=== PATIENT | female | born 1930 | race African-American/Black ===

== ENCOUNTER 2018-07-17 07:00 | Inpatient (IN) | payer MEDICARE, MEDICAID ==
[~2018-07-17] VITALS: Ht 170.2 cm; Wt 54.4 kg
[2018-07-17] MEDS ORDERED: ATEN-42 PO (08:16)
[2018-07-17] MEDS ORDERED: LEVO75TA7 PO (08:16)
[2018-07-17] MEDS ORDERED: DONE10TA43 PO (08:16)
[2018-07-17] MEDS ORDERED: LACTATED RINGERS 1,000 ML IV SCH (08:30)
[2018-07-17] MEDS ORDERED: FENTANYL CITRATE/PF 50MCG/ML 2ML VIAL ONE (09:58)
[2018-07-17] MEDS ORDERED: MIDAZOLAM HCL 2 MG/2 ML VIAL ONE (09:59)
[2018-07-17] MEDS ORDERED: PROPOFOL 200MG/20ML VIAL IV ONE (09:59)
[2018-07-17] MEDS ORDERED: ROCURONIUM BROMIDE 10MG/ML VIAL 5ML IV ONE (09:59)
[2018-07-17] MEDS ORDERED: EPHEDRINE SULFATE 50MG/ML VIAL ONE ×3 (10:04→11:40)
[2018-07-17] MEDS ORDERED: SODIUM CHLORIDE 0.9% 10ML VIAL ONE ×3 (10:04→11:38)
[2018-07-17] MEDS ORDERED: CEFAZOLIN SODIUM 1000MG/VIAL ONE (10:34)
[2018-07-17] MEDS ORDERED: GLYCOPYRROLATE 0.2 MG/ML 2ML VIAL ONE (10:35)
[2018-07-17] MEDS ORDERED: ATROPINE SULFATE 1MG/10ML SYR ONE (10:45)
[2018-07-17] MEDS ORDERED: METOCLOPRAMIDE HCL 10MG/2ML VIAL ONE (11:56)
[2018-07-17] MEDS ORDERED: ONDANSETRON HCL 4MG/2ML INJ ONE (11:56)
[2018-07-17 12:41] LABS: BASOPHILS % 0.7 % (0.0-2.0); EOSINOPHILS % 1.3 % (0.0-5.0); HEMATOCRIT. 22.1 % (36.0-48.0); HEMOGLOBIN. 7.4 g/dL (12.0-16.0); LYMPHOCYTES % 16.2 % (20.0-50.0); MEAN CORPUSCULAR HEMOGLOBIN 31.1 pg (28.0-32.0); MEAN CORPUSCULAR VOLUME 92.4 fL (81.0-99.0); MEAN PLATELET VOLUME 7.8 fl (7.4-10.4); NEUTROPHILS % 71.8 % (40.0-76.0); PLATELET 238 x1000/uL (130-400); RED BLOOD CELL COUNT 2.39 mill/uL (4.2-5.4); RED CELL DISTRIBUTION WIDTH 13.8 % (11.6-14.6)
[2018-07-17] MEDS ORDERED: HYDROMORPHONE HCL/PF 2MG/ML CPJ IV PRN (13:00)
[2018-07-17] MEDS ORDERED: MAGNESIUM HYDROXIDE 400MG/5ML 30ML UDC PO PRN (13:00)
[2018-07-17] MEDS ORDERED: LORAZEPAM 1MG TABLET PO PRN (13:00)
[2018-07-17] MEDS ORDERED: ACETAMINOPHEN 500MG TABLET PO PRN (13:15)
[2018-07-17] MEDS ORDERED: CEFAZOLIN SODIUM 1000MG/VIAL IV SCH (14:00)
[2018-07-17 16:00] VITALS: BP 105/42
[2018-07-17] MEDS ORDERED: CEFAZOLIN 1000MG PREMIX 50 ML IV SCH (16:00)
[2018-07-17 17:07] VITALS: BP 121/51
[2018-07-17] MEDS: FERROUS SULFATE 325MG TABLET PO SCH (18:12)
[2018-07-17] MEDS: DOCUSATE SODIUM 100MG CAPSULE PO SCH (18:12)
[2018-07-17 20:00] VITALS: BP 96/50
[2018-07-17 20:00] LABS: HEMATOCRIT 24.3 % (36.0-48.0); HEMOGLOBIN 8.2 g/dL (12.0-16.0)
[2018-07-18] VITALS (8 sets, daily range): BP systolic 85–104; BP diastolic 31–42
[2018-07-18 07:21] LABS: BASOPHILS % 0.4 % (0.0-2.0); EOSINOPHILS % 1.5 % (0.0-5.0); HEMATOCRIT. 21.8 % (36.0-48.0); HEMOGLOBIN. 7.1 g/dL (12.0-16.0); LYMPHOCYTES % 11.3 % (20.0-50.0); MEAN CORPUSCULAR HEMOGLOBIN 30.3 pg (28.0-32.0); MEAN CORPUSCULAR VOLUME 92.6 fL (81.0-99.0); MEAN PLATELET VOLUME 7.4 fl (7.4-10.4); MONOCYTES % 9.7 % (2.0-8.0); NEUTROPHILS % 77.1 % (40.0-76.0); PLATELET 255 x1000/uL (130-400); RED BLOOD CELL COUNT 2.35 mill/uL (4.2-5.4); RED CELL DISTRIBUTION WIDTH 13.6 % (11.6-14.6)
[2018-07-18] MEDS: FERROUS SULFATE 325MG TABLET PO SCH ×2 (08:16→12:54)
[2018-07-18] MEDS: DOCUSATE SODIUM 100MG CAPSULE PO SCH (08:17)
[2018-07-18] MEDS ORDERED: LEVOFLOXACIN 500MG TABLET PO SCH (11:00)
[2018-07-19] MEDS ORDERED: LEVOFLOXACIN 250MG TABLET PO SCH (11:00)
== END 2018-07-18 17:07 | disposition home or self-care (01) | DRG 446 ==
LOC: OR 07:00 → 6EST 07:01
PROVIDERS: ADMIT Urology; ATTEND Urology
PROC: 0TBB8ZZ Excision of Bladder, Via Natural or Artificial Opening Endoscopic (ICD-10-PCS; principal; 2018-07-17)
DX: C67.9 Malignant neoplasm of bladder, unspecified (principal); R31.0 Gross hematuria; D64.9 Anemia, unspecified; E03.9 Hypothyroidism, unspecified; I10 Essential (primary) hypertension; I44.0 Atrioventricular block, first degree
CPT/HCPCS: 36415; 71045; 80048; 80051; 85014; 85018; 88305; 93005; J0461; J0690; J2250; J2405; J2704; J2765; J3010; J3490